=== PATIENT | female | born 1950 | race Caucasian/White ===

== ENCOUNTER 2022-07-03 11:01 | Outpatient (CLI) | payer MEDICARE | END 2022-07-03 11:02 | disposition home or self-care (01) | LOC: BICMAMMO 11:01 | PROVIDERS: ATTEND Family Medicine | DX: Z12.31 Encounter for screening mammogram for malignant neoplasm of breast (principal); Z90.11 Acquired absence of right breast and nipple; Z98.890 Other specified postprocedural states | CPT/HCPCS: 77063; 77067 ==

== ENCOUNTER 2023-11-12 | Outpatient (CLI) | payer MEDICARE, OTHER | END 2023-11-12 09:57 | disposition home or self-care (01) | DX: Z12.31 Encounter for screening mammogram for malignant neoplasm of breast (principal); M81.0 Age-related osteoporosis without current pathological fracture; Z90.11 Acquired absence of right breast and nipple; Z98.890 Other specified postprocedural states ==